=== PATIENT | male | born 1950 | race Caucasian/White ===

== ENCOUNTER 2020-05-10 09:18 | Observation (INO) | payer OTHER ==
[~2020-05-10] VITALS: Ht 180.3 cm; Wt 66.2 kg
[~2020-05-10 09:18] MED LIST: FOLIC ACID 1 MG1 MG PO; LACTULOSE20 GM/30 M PO; OMNICEF 300 MG300 MG PO; PROTONIX 40 MG40 M1 PO; VITAMIN B-1100 M1 PO; XIFAXAN 550 MG550 MG PO; ZITHROMAX1 GM PO; ZITHROMAX250 MG PO
[2020-05-10 10:16] LABS: HEMOGLOBIN 9.5 gm/dl (14.0-17.5); RED BLOOD COUNT 3.17 M/UL (4.20-5.50); WHITE BLOOD COUNT 2.9 K/UL (4.5-11.0)
[2020-05-10 10:49] LABS: BUN/CREATININE RATIO 29 (0-10)
[2020-05-10] MEDS ORDERED: DRONABINOL5 MG PO (12:48)
[2020-05-10] MEDS ORDERED: ONDANSETRON HCL8 MG PO (12:48)
[2020-05-10] MEDS ORDERED: ALDACTAZIDE 251 EACH PO (12:49)
[2020-05-10] MEDS ORDERED: LACTULOSE10 GM/15 M PO (12:49)
[2020-05-10] MEDS ORDERED: PROTONIX40 MG PO (12:49)
[2020-05-10] MEDS ORDERED: B-100 COMPLEX100 MG PO (15:18)
[2020-05-10] MEDS ORDERED: FOLIC ACID1 MG PO (15:19)
[2020-05-10] MEDS ORDERED: CAPECITABINE150 MG PO (15:20)
[2020-05-10] MEDS ORDERED: CAPECITABINE500 MG PO (15:22)
[2020-05-11 04:09] LABS: HEMOGLOBIN 9.3 gm/dl (14.0-17.5); RED BLOOD COUNT 3.16 M/UL (4.20-5.50); WHITE BLOOD COUNT 2.6 K/UL (4.5-11.0)
[2020-05-11 04:46] LABS: BUN/CREATININE RATIO 35 (0-10)
== END 2020-05-11 15:27 | disposition home or self-care (01) ==
LOC: ER1 09:18 → MED SURG 4 12:28 → CDU 12:28 → MED SURG 4 17:12
PROVIDERS: Physician Assistant Medical; ADMIT Internal Medicine Infectious Disease
DX: K72.00 Acute and subacute hepatic failure without coma (principal); K70.30 Alcoholic cirrhosis of liver without ascites; F10.10 Alcohol abuse, uncomplicated; E87.6 Hypokalemia; C20 Malignant neoplasm of rectum; D61.810 Antineoplastic chemotherapy induced pancytopenia; T45.1X5A Adverse effect of antineoplastic and immunosuppressive drugs, initial encounter; E11.9 Type 2 diabetes mellitus without complications; I10 Essential (primary) hypertension; Z20.822 Contact with and (suspected) exposure to COVID-19; Z91.14 Patient's other noncompliance with medication regimen; Z79.899 Other long term (current) drug therapy
CPT/HCPCS: 36415; 36600; 70450; 71045; 80053; 82140; 82550; 82553; 82803; 83605; 83735; 83874; 84132; 84484; 85025; 85027; 85610; G0378; U0002

== ENCOUNTER 2020-05-12 10:24 | Inpatient (IN) | payer OTHER ==
[~2020-05-12] VITALS: Ht 182.9 cm; Wt 75.9 kg
[~2020-05-12 10:24] MED LIST changes: +ALDACTAZIDE 251 EACH PO; +B-100 COMPLEX100 MG PO; +CAPECITABINE150 MG PO; +CAPECITABINE500 MG PO; +DRONABINOL5 MG PO; +FOLIC ACID1 MG PO; +LACTULOSE10 GM/15 M PO; +ONDANSETRON HCL8 MG PO; +PROTONIX40 MG PO
[2020-05-12 11:09] LABS: HEMOGLOBIN 9.2 gm/dl (14.0-17.5); RED BLOOD COUNT 3.08 M/UL (4.20-5.50); WHITE BLOOD COUNT 3.3 K/UL (4.5-11.0)
[2020-05-12 11:45] LABS: BUN/CREATININE RATIO 26 (0-10)
[2020-05-13 02:49] LABS: HEMOGLOBIN 8.5 gm/dl (14.0-17.5); RED BLOOD COUNT 2.85 M/UL (4.20-5.50); WHITE BLOOD COUNT 3.1 K/UL (4.5-11.0)
[2020-05-13 03:24] LABS: BUN/CREATININE RATIO 31 (0-10)
[2020-05-13] MEDS ORDERED: VITAMIN B-1 5050 MG PO (21:16)
[2020-05-14 06:19] LABS: HEMOGLOBIN 8.3 gm/dl (14.0-17.5); RED BLOOD COUNT 2.75 M/UL (4.20-5.50); WHITE BLOOD COUNT 3.8 K/UL (4.5-11.0)
[2020-05-14 06:39] LABS: BUN/CREATININE RATIO 26 (0-10)
[2020-05-15 04:07] LABS: HEMOGLOBIN 8.4 gm/dl (14.0-17.5); RED BLOOD COUNT 2.77 M/UL (4.20-5.50); WHITE BLOOD COUNT 3.7 K/UL (4.5-11.0)
[2020-05-15 04:39] LABS: BUN/CREATININE RATIO 24 (0-10)
== END 2020-05-15 20:30 | DRG 441 ==
LOC: ER1 10:24 → MED SURG 4 15:40 → CDU 15:40 → MED SURG 4 18:02
PROVIDERS: Family Medicine; Physician Assistant; Physician Assistant Medical; ADMIT Internal Medicine Infectious Disease
DX: K72.00 Acute and subacute hepatic failure without coma (principal); D61.810 Antineoplastic chemotherapy induced pancytopenia; C19 Malignant neoplasm of rectosigmoid junction; E44.0 Moderate protein-calorie malnutrition; E88.09 Other disorders of plasma-protein metabolism, not elsewhere classified; K70.30 Alcoholic cirrhosis of liver without ascites; Z20.822 Contact with and (suspected) exposure to COVID-19; T45.1X5A Adverse effect of antineoplastic and immunosuppressive drugs, initial encounter; I10 Essential (primary) hypertension; Z91.19 Patient's noncompliance with other medical treatment and regimen; Z79.899 Other long term (current) drug therapy; Z68.22 Body mass index [BMI] 22.0-22.9, adult
CPT/HCPCS: 36415; 36600; 70450; 71045; 80053; 80307; 81001; 82009; 82140; 82550; 82553; 82803; 83605; 83690; 83735; 83874; 84132; 84484; 85025; 85027; 85610; 93005; 97110-GP-CQ; 97116-GP-CQ; 97162; 99285; G0378; G0480; U0002

== ENCOUNTER 2020-06-09 15:14 | Inpatient (IN) | payer OTHER ==
[~2020-06-09] VITALS: Ht 182.9 cm; Wt 73.5 kg
[~2020-06-09 15:14] MED LIST changes: +VITAMIN B-1 5050 MG PO
[2020-06-09 16:34] LABS: HEMOGLOBIN 10.1 gm/dl (14.0-17.5); RED BLOOD COUNT 3.24 M/UL (4.20-5.50); WHITE BLOOD COUNT 7.4 K/UL (4.5-11.0)
[2020-06-09 17:03] LABS: BUN/CREATININE RATIO 18 (0-10)
[2020-06-10 04:40] LABS: HEMOGLOBIN 8.2 gm/dl (14.0-17.5); WHITE BLOOD COUNT 5.8 K/UL (4.5-11.0)
[2020-06-10 04:42] LABS: RED BLOOD COUNT 2.6 M/UL (4.20-5.50)
[2020-06-10 05:07] LABS: BUN/CREATININE RATIO 20 (0-10)
[2020-06-11 06:03] LABS: HEMOGLOBIN 8.1 gm/dl (14.0-17.5); RED BLOOD COUNT 2.55 M/UL (4.20-5.50)
[2020-06-11 06:12] LABS: BUN/CREATININE RATIO 20 (0-10)
[2020-06-11 12:55] LABS: ACINETOBACTER BAUMANNII Not Detected (Negative); CANDIDA ALBICANS Not Detected (Negative); CANDIDA KRUSEI Not Detected (Negative); CANDIDA TROPICALIS Not Detected (Negative); ENTEROCOCCUS Not Detected (Negative); ESCHERICHIA COLI Not Detected (Negative); HAEMOPHILUS INFLUENZAE Not Detected (Negative); KLEBSIELLA OXYTOCA Not Detected (Negative); KLEBSIELLA PNEUMONIAE Not Detected (Negative); KPC-CARBAPENEM-RESISTANCE GENE Not Detected (Negative); PROTEUS Not Detected (Negative); PSEUDOMONAS AERUGINOSA Not Detected (Negative); SERRATIA MARCESANS Not Detected (Negative); STAPHYLOCOCCUS Not Detected (Negative); STAPHYLOCOCCUS AUREUS Not Detected (Negative); STREP AGALACTIAE (GROUP B) Not Detected (Negative); STREP PYOGENES (GROUP A) Not Detected (Negative); STREPTOCOCCUS Not Detected (Negative); mecA (METHICILLIN RESIST GENE Not Detected (Negative); vanA/B (VANCOMYCIN RESIST GENE Not Detected (Negative)
[2020-06-12 02:59] LABS: BUN/CREATININE RATIO 18 (0-10)
[2020-06-13 03:13] LABS: RED BLOOD COUNT 2.57 M/UL (4.20-5.50); WHITE BLOOD COUNT 3.9 K/UL (4.5-11.0)
[2020-06-13 03:57] LABS: BUN/CREATININE RATIO 14 (0-10)
[2020-06-14 02:46] LABS: HEMOGLOBIN 8.5 gm/dl (14.0-17.5); RED BLOOD COUNT 2.68 M/UL (4.20-5.50); WHITE BLOOD COUNT 3.7 K/UL (4.5-11.0)
[2020-06-14 02:57] LABS: BUN/CREATININE RATIO 14 (0-10)
[2020-06-16 07:02] LABS: HEMOGLOBIN 8.3 gm/dl (14.0-17.5); RED BLOOD COUNT 2.62 M/UL (4.20-5.50); WHITE BLOOD COUNT 4.2 K/UL (4.5-11.0)
[2020-06-16 07:16] LABS: BUN/CREATININE RATIO 16 (0-10)
[2020-06-17 06:15] LABS: BUN/CREATININE RATIO 13 (0-10)
--- NOTE | 2020-06-17 14:35 | NUR ---
BEGAN BLADDER TRAINING PATIENT PER PROVIDER INSTRUCTION
[2020-06-19 07:25] LABS: BUN/CREATININE RATIO 16 (0-10)
[2020-06-21 07:04] LABS: BUN/CREATININE RATIO 15 (0-10)
[2020-06-22 03:49] LABS: BUN/CREATININE RATIO 13 (0-10)
[2020-06-23 03:37] LABS: BUN/CREATININE RATIO 14 (0-10)
[2020-06-24 03:58] LABS: BUN/CREATININE RATIO 13 (0-10)
[2020-06-24] MEDS ORDERED: IPRAT-ALBUT 0.5-3 ML NEB (14:27)
[2020-06-24] MEDS ORDERED: LASIX40 MG PO (14:27)
[2020-06-24] MEDS ORDERED: XIFAXAN 550 MG550 MG PO (14:27)
[2020-06-24] MEDS ORDERED: ALDACTONE 25MG25 MG PO (14:27)
== END 2020-06-25 14:29 | DRG 441 ==
LOC: ER1 15:14 → CDU 17:39 → MED SURG 4 17:39
PROVIDERS: Emergency Medicine; Internal Medicine; ADMIT Internal Medicine
DX: K72.00 Acute and subacute hepatic failure without coma (principal); J18.9 Pneumonia, unspecified organism; C20 Malignant neoplasm of rectum; D61.818 Other pancytopenia; K70.31 Alcoholic cirrhosis of liver with ascites; I10 Essential (primary) hypertension; R33.9 Retention of urine, unspecified; E87.6 Hypokalemia
CPT/HCPCS: 0240U; 36415; 36600; 71045; 76705; 80048; 80053; 80307; 81001; 82140; 82550; 82553; 82803; 82962; 83605; 83735; 83880; 84100; 84132; 84484; 85025; 85610; 85730; 87040; 87077; 87086; 87150; 94640; 94664; 94760; 96365; 96366; 96368; 97110; 97110-GP-CQ; 97116; 97116-GP-CQ; 97162; 97167; 97530; 97530-GP-CQ; 97535; 99285; A6212; G0480; J1644; J1940; J2543; J3370; J7030; U0002